=== PATIENT | female | born 1970 | race Caucasian/White ===

== ENCOUNTER 2018-04-30 10:34 | Emergency (ER) | payer MEDICARE, OTHER ==
[~2018-04-30] VITALS: Ht 152.4 cm; Wt 70.3 kg
[~2018-04-30 10:34] MED LIST: CELEBREX200 MG PO; CITALOPRAM HBR20 MG PO; LASIX20 MG PO; LEXAPRO20 MG PO; MAXALT10 MG PO; MS CONTIN30 MG PO; NORCO 10-325 T1 EACH PO; TOPIRAGEN100 MG PO; WOMEN'S DAILY1 EAC1 PO; XANAX1 MG PO
[2018-04-30] MEDS ORDERED: SODIUM CHLORIDE 0.9% 1000ML 1,000 ML IV STA (10:46)
[2018-04-30 11:30] LABS: BASOPHILS % 0.3 % (0.0-1.0); EOSINOPHILS # (AUTO) 0.2 (0.0-0.4); EOSINOPHILS % 1.6 % (0.0-6.0); HEMATOCRIT 41.8 % (34.2-44.1); HEMOGLOBIN 13.8 g/dL (12.0-16.0); LYMPHOCYTES # (AUTO) 2.6 (1.0-3.2); MEAN CORPUSCULAR HEMOGLOBIN 30.3 pg (28-32); MEAN CORPUSCULAR VOLUME 91.7 fL (81-99); MONOCYTES # (AUTO) 0.6 (0.2-0.8); MONOCYTES % 6.4 % (4.4-11.3); NEUTROPHILS % 63.4 % (38.7-80.0); PLATELET COUNT 319 x10e3/uL (140-360); RED BLOOD COUNT 4.56 x10e6/uL (3.6-5.1); RED CELL DISTRIBUTION WIDTH 15.3 % (11.7-14.4)
[2018-04-30 11:33] LABS: BILIRUBIN,URINE NEGATIVE (NEGATIVE); CLARITY,URINE CLEAR (CLEAR); COLOR,URINE YELLOW (YELLOW); KETONES,URINE NEGATIVE (NEGATIVE); LEUKOCYTE ESTERASE ,URINE NEGATIVE (NEGATIVE); NITRITE,URINE NEGATIVE (NEGATIVE); PROTEIN,URINE DIPSTICK NEGATIVE (NEGATIVE); URINE UROBILINOGEN 0.2 mg/dL (0.2 - 1)
[2018-04-30 11:39] LABS: INR 0.83; PROTHROMBIN TIME 12.2 seconds (11.9-14.5)
[2018-04-30 11:40] LABS: PARTIAL THROMBOPLASTIN TIME 27.7 seconds (23.8-35.5)
[2018-04-30 11:49] LABS: ALANINE AMINOTRANSFERASE 12 IU/L (0-55); ALBUMIN 3.8 g/dL (3.5-5.0); ALBUMIN/GLOBULIN RATIO 1.5 (0.8-2.0); ALKALINE PHOSPHATASE 43 IU/L (40-150); ANION GAP 13.3 mmol/L (8-16); BLOOD UREA NITROGEN 15 mg/dL (7-26); BUN/CREATININE RATIO 17 (6-25); CALCIUM 9.6 mg/dL (8.4-10.2); CARBON DIOXIDE 28 mmol/L (22-29); CHLORIDE 103 mmol/L (98-107); CREATININE, SERUM 0.86 mg/dL (0.57-1.11); EST GLOMERULAR FILTRATION RATE > 60 ML/MIN (60-); GLUCOSE 126 mg/dL (74-118); POTASSIUM 4.3 mmol/L (3.5-5.1); SODIUM 140 mmol/L (136-145)
[2018-04-30 11:56] LABS: BENZODIAZEPINES SCREEN,URINE POSITIVE (NEGATIVE)
[2018-04-30 11:57] LABS: AMPHETAMINES SCREEN,URINE NEGATIVE (NEGATIVE); PHENCYCLIDINE SCREEN,URINE NEGATIVE (NEGATIVE)
[2018-04-30 12:01] LABS: EPITHELIAL CELLS,URINE FEW /LPF; WBC,URINE (MAN) 0-5 /HPF (0-5)
[2018-04-30 12:09] LABS: CREATINE KINASE 131 IU/L (29-168); LIPASE 20 U/L (8-78)
[2018-04-30] MEDS ORDERED: DIAZEPAM 2 MG TAB PO ONE (12:45)
[2018-04-30] MEDS ORDERED: DIAZEPAM 5 MG TAB PO SCH (12:45)
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
== END 2018-04-30 14:52 | disposition home or self-care (01) ==
LOC: ER 10:34
DX: J70.5 Respiratory conditions due to smoke inhalation (principal); T59.811A Toxic effect of smoke, accidental (unintentional), initial encounter; Y92.038 Other place in apartment as the place of occurrence of the external cause
CPT/HCPCS: 36415; 71046; 80053; 80307; 81001; 82375; 82550; 82553; 83690; 84484; 85025; 85610; 85730; 87086; 93005; 99284; J7030

== ENCOUNTER 2019-01-28 11:37 | Observation (INO) | payer MEDICARE ==
[~2019-01-28] VITALS: Ht 167.6 cm; Wt 79.4 kg
--- OUTSIDE RECORDS SUMMARY | 2019-01-28 11:40 | XMS REPORT | Summary of Care ---
Author Author [facility] [place] Organization [facility] [place] Address Unknown Phone Unavailable Encounter HQ Melissa_renée(FIN) [id number] Date(s): 04/17/18 - 04/17/18 [facility] [place] [address] [phone] Encounter Diagnosis Pain in left hip (Final) - 04/23/18 Discharge Disposition: Home or Self Care Attending Physician: Ryan Sánchez MD Referring Physician: Ryan Sánchez MD Vital Signs No data available for this section Problem List Condition Effective Dates Status Health Status Informant Anxiety(Confirmed) Resolved Bipolar(Confirmed) Resolved Migraines(Confirmed) Resolved Paranoid type Resolved schizophrenia(Confir med) Schizophrenia(Confir Resolved med) Allergies, Adverse Reactions, Alerts No Known Medication Allergies Medications No data available for this section Results No data available for this section Immunizations No data available for this section Procedures Procedure Date Related Diagnosis Body Site Status section Completed Social History Social History Type Response Smoking Status Current every day smoker; Exposure to Tobacco Smoke None; Cigarette Smoking Last 365 Days Yes; Reg Smoking Cessation Counseling Yes entered on: 07/16/16 Assessment and Plan No data available for this section
--- OUTSIDE RECORDS SUMMARY | 2019-01-28 11:40 | XMS REPORT | Summary of Care ---
Author Author [facility] Organization [facility] Address Unknown Phone Unavailable Encounter PRITI Mendoza(TIMMY) [id number] Date(s): 03/12/15 - 03/13/15 [facility] [address] [place] [address]- Discharge Disposition: DC[facility] to [facility] Attending Physician: Ana Maria Muñoz MD Vital Signs 1 2 3 Most recent to oldest [Reference Range]: 154.94 cm (03/13/15 12:02 AM) Height 1 2 3 Most recent to oldest [Reference Range]: 98.4 DegF (03/13/15 10:34 PM) 98.6 DegF (03/13/15 8:17 PM) 99.2 DegF *HI* (03/13/15 5:08 PM) Temperature Oral [96.4-99.1 DegF] 1 2 3 Most recent to oldest [Reference Range]: 126/84 mmHg (03/13/15 10:34 PM) 122/78 mmHg (03/13/15 8:17 PM) 133/73 mmHg (03/13/15 5:08 PM) Blood Pressure [90-140/60-90 mmHg] 1 2 3 Most recent to oldest [Reference Range]: 18 BRMIN (03/13/15 10:34 PM) 16 BRMIN (03/13/15 8:17 PM) 18 BRMIN (03/13/15 5:08 PM) Respiratory Rate [14-20 BRMIN] 1 2 3 Most recent to oldest [Reference Range]: 78 bpm (03/13/15 10:34 PM) 72 bpm (03/13/15 8:17 PM) 73 bpm (03/13/15 5:08 PM) Peripheral Pulse Rate [60-100 bpm] 1 2 3 Most recent to oldest [Reference Range]: 68.182 kg (03/13/15 12:02 AM) Weight 1 2 3 Most recent to oldest [Reference Range]: 28.4 m2 (03/13/15 12:02 AM) Body Mass Index Problem List Condition Effective Dates Status Health Status Informant Anxiety(Confirmed) Resolved Bipolar(Confirmed) Resolved Migraines(Confirmed) Resolved Paranoid type Resolved schizophrenia(Confir med) Schizophrenia(Confir Resolved med) Allergies, Adverse Reactions, Alerts Substance Reaction Severity Status NKDA Active Medications morphine Sulfate 2 mg, Route: IVP, Drug form: INJ, ONCE, Dosing Weight 68.182, kg, Priority: STAT , Start date: 03/13/15 10:48:00, Stop date: 03/13/15 10:48:00 Start Date: 03/13/15 Stop Date: 03/13/15 Status: Completed [place] 5/325 oral tablet 1 tab, Route: PO, Drug Form: TAB, Dosing Weight 68.182, kg, ONCE, STAT, Start da te: 03/13/15 13:59:00, Stop date: 03/13/15 13:59:00 Notes: (Same as: [place] 325/5) Do not exceed 4gm/day of acetaminophen. Start Date: 03/13/15 Stop Date: 03/13/15 Status: Completed Results ELECTROLYTES Most recent to 1 oldest [Reference Range]: Sodium Lvl [135-145 140 mEq/L mEq/L] (03/13/15 1:21 AM) Potassium Lvl 3.4 mEq/L [3.5-5.1 mEq/L] *LOW* (03/13/15 1:21 AM) Chloride Lvl [95-109 108 mEq/L mEq/L] (03/13/15 1:21 AM) CO2 [24-32 mEq/L] 28 mEq/L (03/13/15 1:21 AM) AGAP [10.0-20.0 7.4 mEq/L mEq/L] *LOW* (03/13/15 1:21 AM) CHEM PANEL Most recent to 1 oldest [Reference Range]: Creatinine Lvl 1.1 mg/dL [0.5-1.4 mg/dL] (03/13/15 1:21 AM) eGFR 61 mL/min/1.73m2 1 *NA* (03/13/15 1:21 AM) BUN [7-22 mg/dL] 14 mg/dL (03/13/15 1:21 AM) B/C Ratio [6-25] 13 (03/13/15 1:21 AM) Glucose Lvl [70-99 99 mg/dL mg/dL] (03/13/15 1:21 AM) Total Protein 6.8 g/dL [6.4-8.4 g/dL] (03/13/15 1:21 AM) Albumin Lvl [3.5-5.0 3.8 g/dL g/dL] (03/13/15 1:21 AM) Globulin [2.0-4.0 3.0 g/dL g/dL] (03/13/15 1:21 AM) A/G Ratio [0.7-1.6] 1.3 (03/13/15 1:21 AM) Calcium Lvl 8.3 mg/dL [8.5-10.5 mg/dL] *LOW* (03/13/15 1:21 AM) ALT [0-65 unit/L] 23 unit/L (03/13/15 1:21 AM) AST [0-37 unit/L] 19 unit/L (03/13/15 1:21 AM) Alk Phos [39-136 53 unit/L unit/L] (03/13/15 1:21 AM) Bili Total [0.2-1.3 0.3 mg/dL mg/dL] (03/13/15 1:21 AM) 1Result Comment: The eGFR is calculated using the CKD-EPI formula. In most young, healthy individuals the eGFR will be >90 mL/min/1.73m2. The eGFR declines with age. An eGFR of 60-89 may be normal in some populations, particularly the elderly, for whom the CKD-EPI formula has not been extensively validated. Use of the eGFR is not recommended in the following populations: Individuals with unstable creatinine concentrations, including patients and those with serious co-morbid conditions. Patients with extremes in muscle mass or diet. The data above are obtained from the National Kidney Disease Education Program ( NKDEP) which additionally recommends that when the eGFR is used in patients with extremes of body mass index for purposes of drug dosing, the eGFR should be mul tiplied by the estimated BMI. DRUG SCREEN Most recent to 1 oldest [Reference Range]: U Amph Scr Negative [Negative] *NA* (03/13/15 3:59 AM) U Lisa Scr Negative [Negative] *NA* (03/13/15 3:59 AM) U Benzodia Scr Positive [Negative] *ABN* (03/13/15 3:59 AM) U Cocaine Scr Negative [Negative] *NA* (03/13/15 3:59 AM) U Opiate Scr Positive [Negative] *ABN* (03/13/15 3:59 AM) U Phencyc Scr Negative [Negative] *NA* (03/13/15 3:59 AM) U Cannab Scr Negative [Negative] *NA* (03/13/15 3:59 AM) UDS Note See Note (03/13/15 3:59 AM) TOXICOLOGY Most recent to 1 oldest [Reference Range]: Acetaminoph Lvl 18 ug/ml [10-20 ug/ml] (03/13/15 1:21 AM) Salicylate Lvl 4.9 mg/dL [0.0-30.0 mg/dL] (03/13/15 1:21 AM) Etoh (%) <.003 % *NA* (03/13/15 1:21 AM) Ethanol Lvl <3 mg/dL *NA* (03/13/15 1:21 AM) HEMATOLOGY Most recent to 1 oldest [Reference Range]: WBC [3.7-10.4 K/CMM] 8.2 K/CMM (03/13/15 1:21 AM) RBC [4.20-5.40 3.94 M/CMM M/CMM] *LOW* (03/13/15 1:21 AM) Hgb [12.0-16.0 g/dL] 12.5 g/dL (03/13/15 1:21 AM) Hct [36.0-48.0 %] 37.5 % (03/13/15 1:21 AM) MCV [80.0-98.0 fL] 95.3 fL (03/13/15 1:21 AM) MCH [27.0-31.0 pg] 31.7 pg *HI* (03/13/15 1:21 AM) MCHC [32.0-36.0 33.2 g/dL g/dL] (03/13/15 1:21 AM) RDW [11.5-14.5 %] 12.9 % (03/13/15 1:21 AM) Platelet [133-450 300 K/CMM K/CMM] (03/13/15 1:21 AM) MPV [7.4-10.4 fL] 7.2 fL *LOW* (03/13/15 1:21 AM) Segs [45.0-75.0 %] 55.4 % (03/13/15 1:21 AM) Lymphocytes 35.7 % [20.0-40.0 %] (03/13/15 1:21 AM) Monocytes [2.0-12.0 5.8 % %] (03/13/15 1:21 AM) Eosinophils [0.0-4.0 2.5 % %] (03/13/15 1:21 AM) Basophils [0.0-1.0 0.6 % %] (03/13/15 1:21 AM) Segs-Bands # 4.5 K/CMM [1.5-8.1 K/CMM] (03/13/15 1:21 AM) Lymphocytes # 2.9 K/CMM [1.0-5.5 K/CMM] (03/13/15 1:21 AM) Monocytes # [0.0-0.8 0.5 K/CMM K/CMM] (03/13/15 1:21 AM) Eosinophils # 0.2 K/CMM [0.0-0.5 K/CMM] (03/13/15 1:21 AM) Immunizations No data available for this section Procedures Procedure Date Related Diagnosis Body Site section Social History Social History Type Response Smoking Status Current every day smoker; Exposure to Tobacco Smoke None; Cigarette Smoking Last 365 Days Yes; Reg Smoking Cessation Counseling Yes Assessment and Plan No data available for this section
--- OUTSIDE RECORDS SUMMARY | 2019-01-28 11:40 | XMS REPORT | Summary of Care ---
Author Author [facility] Organization [facility] Address Unknown Phone Unavailable Encounter PRITI Mendoza(TIMMY) [id number] Date(s): 07/16/16 - 07/16/16 [facility] [address] [place] [address]- [phone] Discharge Diagnosis: Dysuria Discharge Diagnosis: Chronic pain Discharge Disposition: Home or Self Care Attending Physician: Saroj Connolly MD Vital Signs Most recent to 1 2 oldest [Reference Range]: Height 152.4 cm (07/16/16 2:36 PM) Temperature Oral 98.3 DegF 99.0 DegF [96.4-99.1 DegF] (07/16/16 5:04 PM) (07/16/16 2:36 PM) Blood Pressure 135/73 mmHg [90-140/60-90 mmHg] (07/16/16 2:36 PM) Respiratory Rate 18 BRMIN 16 BRMIN [14-20 BRMIN] (07/16/16 5:04 PM) (07/16/16 2:36 PM) Peripheral Pulse 88 bpm 102 bpm Rate [60-100 bpm] (07/16/16 5:04 PM) *HI* (07/16/16 2:36 PM) Weight 68.182 kg (07/16/16 2:36 PM) Body Mass Index 29.36 m2 (07/16/16 2:36 PM) Problem List Condition Effective Dates Status Health Status Informant Anxiety(Confirmed) Resolved Bipolar(Confirmed) Resolved Migraines(Confirmed) Resolved Paranoid type Resolved schizophrenia(Confir med) Schizophrenia(Confir Resolved med) Allergies, Adverse Reactions, Alerts Substance Reaction Severity Status NKDA Active Medications fentaNYL patch 50 mcg/hr 1 patch, Route: TOP, Drug Form: ERFILM, Dosing Weight 68.182, kg, Q72H, Start da te: 07/16/16 16:00:00 [employer], Duration: 30 day, Stop date: 08/12/16 16:00:00 [employer] Notes: (Same as: Duragesic)Check for product integrity. Apply to intact skin"Re move old patch before application of new patch" Start Date: 07/16/16 Stop Date: 07/16/16 Status: Discontinued Tylenol with Codeine #3 oral tablet 1 - 2 tab, PO, Q4H, PRN Pain, X 2 day, # 12 tab, 0 Refill(s) Start Date: 07/16/16 Stop Date: 07/18/16 Status: Completed Results URINE AND STOOL Most recent to 1 oldest [Reference Range]: UA Turbidity [Clear] Clear (07/16/16 4:02 PM) UA Color [Yellow] Yellow *NA* (07/16/16 4:02 PM) UA pH [5.0-8.0] 6.5 (07/16/16 4:02 PM) UA Spec Grav 1.010 [<=1.030] (07/16/16 4:02 PM) UA Glucose Negative [Negative] (07/16/16 4:02 PM) UA Blood [Negative] Moderate *ABN* (07/16/16 4:02 PM) UA Ketones Negative [Negative] *NA* (07/16/16 4:02 PM) UA Protein Negative [Negative] (07/16/16 4:02 PM) UA Urobilinogen 0.2 EU/dL [0.1-1.0 EU/dL] (07/16/16 4:02 PM) UA Bili [Negative] Negative *NA* (07/16/16 4:02 PM) UA Leuk Est Negative [Negative] (07/16/16 4:02 PM) UA Nitrite Negative [Negative] (07/16/16 4:02 PM) UA WBC [0-5 /HPF] <1 /HPF (07/16/16 4:02 PM) UA RBC [0-2 /HPF] 3 /HPF *HI* (07/16/16 4:02 PM) UA Sq Epi [Few /LPF] Occasional /LPF *NA* (07/16/16 4:02 PM) Immunizations No data available for this section Procedures Procedure Date Related Diagnosis Body Site section Social History Social History Type Response Smoking Status Current every day smoker; Exposure to Tobacco Smoke None; Cigarette Smoking Last 365 Days Yes; Reg Smoking Cessation Counseling Yes Assessment and Plan No data available for this section
--- OUTSIDE RECORDS SUMMARY | 2019-01-28 11:40 | XMS REPORT | Continuity of Care Document ---
Author Author [facility] [employer] Address Unknown Phone Unavailable Care Team Providers Care Cable Systems Installer Name Role Phone [employer] Information [facility] Unavailable Unavailable Problems Problem Status Onset Date Classification Date Reported Comments Source Pain in left hip 04/24/2018 11/04/2018 [facility] [place] M25.552 - PAIN IN LEFT HIP Active 04/17/2018 [facility] [place] Discharge Diagnosis: Dysuria 07/16/2016 07/19/2016 [facility] Discharge Diagnosis: Chronic pain 07/16/2016 07/19/2016 [facility] FALL Active 07/16/2016 [facility] SUICIDAL IDEATION Active 03/12/2015 [facility] SUWER BACK PAIN, FALL Active 03/12/2015 [facility] V70.0 - ROUTINE MEDICAL Active 06/03/2011 [facility] [place] Anxiety Resolved Problem 11/04/2018 [facility]SESD [place] Bipolar Resolved Problem 11/04/2018 [facility] [place] Migraines Resolved Problem 11/04/2018 [facility] [place] Paranoid type schizophrenia Resolved Problem 11/04/2018 [facility] [place] Schizophrenia Resolved Problem 11/04/2018 [facility] [place] Medications Medication Details Route Status Patient Instructions Ordering Provider Order Date Source Acetaminophen 300 MG / Codeine Phosphate 30 MG Oral Tablet [Tylenol with Codeine #3] 1 - 2 tab, PO, Q4H, PRN Pain, X 2 day, # 12 tab, 0 Refill(s) No Longer Active 07/16/2016 [facility] 72 HR Fentanyl 0.05 MG/HR Transdermal Patch 1 patch, Route: TOP, Drug Form: ERFILM, Dosing Weight 68.182, kg, Q72H, Start date: 07/16/16 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 Apply to intact skin "Remove old patch before application of new patch" Inactive 07/16/2016 [facility] Acetaminophen 325 MG / Hydrocodone Bitartrate 5 MG Oral Tablet [Atwood 5/325] 1 tab, Route: PO, Drug Form: TAB, Dosing Weight 68.182, kg, ONCE, STAT, Start date: 03/13/15 13:59:00, Stop date: 03/13/15 13:59:00Notes: (Same as: Atwood 325/5) Do not exceed 4gm/day of acetaminophen. Inactive 03/13/2015 [facility] Morphine 2 mg, Route: IVP, Drug form: INJ, ONCE, Dosing Weight 68.182, kg, Priority: STAT, Start date: 03/13/15 10:48:00, Stop date: 03/13/15 10:48:00 Inactive 03/13/2015 [facility] Allergies, Adverse Reactions, Alerts Substance Category Reaction Severity Reaction type Status Date Reported Comments Source No Known Medication Allergies Assertion Drug allergy [facility] [place] Immunizations No Data Provided for This Section Results Order Name Results Value Reference Range Date Interpretation Comments Source URINE AND STOOL UA RBC 3 0 - 2 07/16/2016 [facility] URINE AND STOOL UA Sq Epi Occasional /LPF Few /LPF 07/16/2016 [facility] URINE AND STOOL UA WBC <1 0 - 5 07/16/2016 [facility] URINE AND STOOL UA Color Yellow *NA* (07/16/16 4:02 PM) Yellow 07/16/2016 [facility] URINE AND STOOL UA Turbidity Clear (07/16/16 4:02 PM) Clear 07/16/2016 [facility] URINE AND STOOL UA Spec Grav 1.010 <=1.030 07/16/2016 [facility] URINE AND STOOL UA pH 6.5 5.0 - 8.0 07/16/2016 [facility] URINE AND STOOL UA Blood Moderate *ABN* (07/16/16 4:02 PM) Negative 07/16/2016 [facility] URINE AND STOOL UA Urobilinogen 0.2 0.1 - 1.0 07/16/2016 [facility] URINE AND STOOL UA Nitrite Negative (07/16/16 4:02 PM) Negative 07/16/2016 [facility] URINE AND STOOL UA Leuk Est Negative (07/16/16 4:02 PM) Negative 07/16/2016 [facility] URINE AND STOOL UA Protein Negative (07/16/16 4:02 PM) Negative 07/16/2016 [facility] URINE AND STOOL UA Glucose Negative (07/16/16 4:02 PM) Negative 07/16/2016 [facility] URINE AND STOOL UA Ketones Negative *NA* (07/16/16 4:02 PM) Negative 07/16/2016 [facility] URINE AND STOOL UA Bili Negative *NA* (07/16/16 4:02 PM) Negative 07/16/2016 [facility] DRUG SCREEN U Cocaine Scr Negative *NA* (03/13/15 3:59 AM) Negative 03/13/2015 [facility] DRUG SCREEN U Opiate Scr Positive *ABN* (03/13/15 3:59 AM) Negative 03/13/2015 [facility] DRUG SCREEN U Phencyc Scr Negative *NA* (03/13/15 3:59 AM) Negative 03/13/2015 [facility] DRUG SCREEN U Benzodia Scr Positive *ABN* (03/13/15 3:59 AM) Negative 03/13/2015 [facility] DRUG SCREEN U Cannab Scr Negative *NA* (03/13/15 3:59 AM) Negative 03/13/2015 [facility] DRUG SCREEN U Lisa Scr Negative *NA* (03/13/15 3:59 AM) Negative 03/13/2015 [facility] DRUG SCREEN U Amph Scr Negative *NA* (03/13/15 3:59 AM) Negative 03/13/2015 [facility] DRUG SCREEN UDS Note See Note (03/13/15 3:59 AM) 03/13/2015 [facility] ELECTROLYTES Potassium Lvl 3.4 3.5 - 5.1 03/13/2015 [facility] ELECTROLYTES Sodium Lvl 140 135 - 145 03/13/2015 [facility] ELECTROLYTES Chloride Lvl 108 95 - 109 03/13/2015 [facility] ELECTROLYTES eGFR 61 03/13/2015 Result Comment: The eGFR is calculated using the [...] from the National Kidney Disease Education Program (NKDEP) which additionally recommends that when the eGFR is used in patients with extremes of body mass index for purposes of drug dosing, the eGFR should be multiplied by the estimated BMI. [facility] ELECTROLYTES Bili Total 0.3 0.2 - 1.3 03/13/2015 [facility] ELECTROLYTES ALT 23 0 - 65 03/13/2015 [facility] ELECTROLYTES Albumin Lvl 3.8 3.5 - 5.0 03/13/2015 [facility] ELECTROLYTES Total Protein 6.8 6.4 - 8.4 03/13/2015 [facility] ELECTROLYTES Alk Phos 53 39 - 136 03/13/2015 [facility] ELECTROLYTES AST 19 0 - 37 03/13/2015 [facility] ELECTROLYTES Calcium Lvl 8.3 8.5 - 10.5 03/13/2015 [facility] ELECTROLYTES CO2 28 24 - 32 03/13/2015 [facility] ELECTROLYTES Creatinine Lvl 1.1 0.5 - 1.4 03/13/2015 [facility] ELECTROLYTES BUN 14 7 - 22 03/13/2015 [facility] ELECTROLYTES Glucose Lvl 99 70 - 99 03/13/2015 [facility] ELECTROLYTES A/G Ratio 1.3 0.7 - 1.6 03/13/2015 [facility] ELECTROLYTES Globulin 3.0 2.0 - 4.0 03/13/2015 [facility] ELECTROLYTES B/C Ratio 13 6 - 25 03/13/2015 [facility] ELECTROLYTES AGAP 7.4 10.0 - 20.0 03/13/2015 [facility] HEMATOLOGY Segs 55.4 45.0 - 75.0 03/13/2015 [facility] HEMATOLOGY Eosinophils 2.5 0.0 - 4.0 03/13/2015 [facility] HEMATOLOGY Monocytes 5.8 2.0 - 12.0 03/13/2015 [facility] HEMATOLOGY Basophils 0.6 0.0 - 1.0 03/13/2015 [facility] HEMATOLOGY Lymphocytes 35.7 20.0 - 40.0 03/13/2015 [facility] HEMATOLOGY Eosinophils # 0.2 0.0 - 0.5 03/13/2015 [facility] HEMATOLOGY Monocytes # 0.5 0.0 - 0.8 03/13/2015 [facility] HEMATOLOGY Lymphocytes # 2.9 1.0 - 5.5 03/13/2015 [facility] HEMATOLOGY Segs-Bands # 4.5 1.5 - 8.1 03/13/2015 [facility] HEMATOLOGY Platelet 300 133 - 450 03/13/[address] [facility] MPV 7.2 7.4 - 10.4 03/13/[address] [facility] WBC 8.2 3.7 - 10.4 03/13/[address] [facility] RBC 3.94 4.20 - 5.40 03/13/[address] [facility] Hct 37.5 36.0 - 48.0 03/13/[address] [facility] Hgb 12.5 12.0 - 16.0 03/13/[address] [facility] MCV 95.3 80.0 - 98.0 03/13/[address] [facility] MCH 31.7 27.0 - 31.0 03/13/[address] [facility] RDW 12.9 11.5 - 14.5 03/13/[address] [facility] MCHC 33.2 32.0 - 36.0 03/13/2015 [facility] TOXICOLOGY Salicylate Lvl 4.9 0.0 - 30.0 03/13/2015 [facility] TOXICOLOGY Etoh (%) <0.003 03/13/2015 [facility] TOXICOLOGY Ethanol Lvl <3 03/13/2015 [facility] TOXICOLOGY Acetaminoph Lvl 18 10 - 20 03/13/2015 [facility] Pathology Reports No Data Provided for This Section Diagnostic Reports Report Value Date Source Knee 1-2 Views unilateral DX HISTORY: - M25.562 Pain in left knee TECHNIQUE: AP and lateral views of the left knee. COMPARISON: None available. FINDINGS: Normal mineralization and anatomic alignment of the bones without fracture or dislocation. The joint spaces are well-maintained without evidence of effusion. IMPRESSION: No acute osseous injury. [id number] 04/17/2018 [facility] [place] Hip 2/3 views uni w pelvis DX HISTORY: - M25.552 Pain in left hip TECHNIQUE: AP view of the pelvis and AP and frog-leg lateral views of the left hip. COMPARISON: None available. FINDINGS: Normal mineralization and anatomic alignment of the bones without fracture or dislocation. The joint spaces are well-maintained without evidence of effusion. Several pelvic phleboliths are noted. IMPRESSION: No acute osseous injury. [id number] 04/17/2018 [facility] [place] Chest 2 views DX Clinical Indication: 46 years Female with right chest and body pain, fell on Monday Comparison: Chest x-ray 06/03/2011 FINDINGS: The PA chest radiograph shows normal lung volumes. No interstitial or airspace opacities. Several left lung calcified granulomata, unchanged. No pleural effusion. No pneumothorax. The cardiac silhouette is normal. The pulmonary vasculature is normal. The trachea is midline. There are no acute osseous abnormalities noted. IMPRESSION: No chest radiographic evidence of acute cardiopulmonary disease. SL: [id number] 07/16/2016 [facility] Brain wo contrast CT CT HEAD WITHOUT CONTRAST INDICATION: Anxiety, suicidal, no other history. There is moderate ventriculomegaly. No mass, hemorrhage, ischemic change or other intracranial abnormality is identified. No calvarial abnormality is identified. The visualized sinuses and mastoid air cells are clear. IMPRESSION: Ventriculomegaly. No acute abnormality. SL: 03/13/2015 [facility] Shoulder series DX RIGHT SHOULDER, 3 VIEWS. INDICATION: Right shoulder pain post fall. No fracture is evident. Degenerative changes involve the AC joint. The glenohumeral articulation is not remarkable. SL: 03/13/2015 [facility] Consultation Notes No Data Provided for This Section Discharge Summaries No Data Provided for This Section History and Physicals No Data Provided for This Section Vital Signs Vital Sign Value Date Comments Source Respitory Rate 18 07/16/2016 [facility] Temperature Oral (F) 98.3 F 07/16/2016 [facility] Heart Rate 88 07/16/2016 [facility] Weight 68.182 07/16/2016 [facility] BMI Calculated 29.36 07/16/2016 [facility] Height 152.4 cm 07/16/2016 [facility] Temperature Oral (F) 99.0 F 07/16/2016 [facility] Systolic (mm Hg) 135 07/16/2016 [facility] Diastolic (mm Hg) 73 07/16/2016 [facility] Respitory Rate 16 07/16/2016 [facility] Heart Rate 102 07/16/2016 [facility] Systolic (mm Hg) 126 03/14/2015 [facility] Diastolic (mm Hg) 84 03/14/2015 [facility] Temperature Oral (F) 98.4 F 03/14/2015 [facility] Respitory Rate 18 03/14/2015 [facility] Heart Rate 78 03/14/2015 [facility] Respitory Rate 16 03/14/2015 [facility] Systolic (mm Hg) 122 03/14/2015 [facility] Diastolic (mm Hg) 78 03/14/2015 [facility] Temperature Oral (F) 98.6 F 03/14/2015 [facility] Heart Rate 72 03/14/2015 [facility] Systolic (mm Hg) 133 03/13/2015 [facility] Diastolic (mm Hg) 73 03/13/2015 [facility] Temperature Oral (F) 99.2 F 03/13/2015 [facility] Heart Rate 73 03/13/2015 [facility] Respitory Rate 18 03/13/2015 [facility] Weight 68.182 03/13/2015 [facility] BMI Calculated 28.4 03/13/2015 [facility] Height 154.94 cm 03/13/2015 [facility] Encounters Location Location Details Encounter Type Encounter Number Reason For Visit Attending Provider ADM Date DC Date Status Source OD [id number] V70.0 - ROUTINE MEDICAL MECHE BROWN 06/03/[address] [place] [facility] [id number] Ana Maria Tiannadtare 03/13/2015 03/14/2015 [facility] Emergency [id number] Saroj Connolly 07/16/2016 07/16/2016 [facility] [place] [facility] [id number] Ryan Pedroza Jr 04/17/2018 04/18/2018 [facility] [place] Procedures Procedure Code Date Perfomer Comments Source section 68881045 [facility] [place] section [id number] [facility] Assessment and Plan No Data Provided for This Section Plan of Care No Data Provided for This Section Social History Social History Date Source Social History TypeResponse Smoking Status Current every day smoker; Exposure to Tobacco Smoke None; Cigarette Smoking Last 365 Days Yes; Reg Smoking Cessation Counseling Yes entered on: 07/16/16 07/16/2016 [facility] [place] Social History TypeResponse Smoking Status Current every day smoker; Exposure to Tobacco Smoke None; Cigarette Smoking Last 365 Days Yes; Reg Smoking Cessation Counseling Yes 07/16/2016 [facility] Family History No Data Provided for This Section Advance Directives No Data Provided for This Section Functional Status No Data Provided for This Section
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
--- NOTE | 2019-01-28 12:28 | NUR ---
NOTIFIED RADIOLOGY FOR STAT CT BRAIN
--- NOTE | 2019-01-28 12:43 | NUR ---
NOTIFIED RADIOLOGY FOR STAT CT BRAIN. RADIOLOGY STATES SHE WILL BE THE NEXT PATIENT TO BE TRANSPORTED TO CT.
[2019-01-28 12:53] LABS: BASOPHILS % 0.3 % (0.0-1.0); EOSINOPHILS # (AUTO) 0.1 (0.0-0.4); EOSINOPHILS % 1.1 % (0.0-6.0); HEMATOCRIT 36.8 % (34.2-44.1); HEMOGLOBIN 12.5 g/dL (12.0-16.0); LYMPHOCYTES # (AUTO) 1.7 (1.0-3.2); LYMPHOCYTES % 23.2 % (18.0-39.1); MEAN CORPUSCULAR HEMOGLOBIN 31.7 pg (28-32); MEAN CORPUSCULAR VOLUME 93.4 fL (81-99); MONOCYTES # (AUTO) 0.4 (0.2-0.8); MONOCYTES % 5.8 % (4.4-11.3); NEUTROPHILS # (AUTO) 5.1 (2.1-6.9); NEUTROPHILS % 69.3 % (38.7-80.0); PLATELET COUNT 297 x10e3/uL (140-360); RED BLOOD COUNT 3.94 x10e6/uL (3.6-5.1); RED CELL DISTRIBUTION WIDTH 12.7 % (11.7-14.4)
[2019-01-28 12:55] LABS: BILIRUBIN,URINE NEGATIVE (NEGATIVE); CLARITY,URINE CLEAR (CLEAR); COLOR,URINE YELLOW (YELLOW); KETONES,URINE NEGATIVE (NEGATIVE); LEUKOCYTE ESTERASE ,URINE NEGATIVE (NEGATIVE); NITRITE,URINE NEGATIVE (NEGATIVE); PROTEIN,URINE DIPSTICK NEGATIVE (NEGATIVE); URINE UROBILINOGEN 0.2 mg/dL (0.2 - 1)
[2019-01-28 12:57] LABS: BACTERIA,URINE FEW /HPF; EPITHELIAL CELLS,URINE FEW /LPF; RBC,URINE 0-5 /HPF (0-5); WBC,URINE (MAN) 0-5 /HPF (0-5)
[2019-01-28 13:09] LABS: INR 0.86; PROTHROMBIN TIME 12.2 seconds (11.9-14.5)
[2019-01-28 13:19] LABS: ALANINE AMINOTRANSFERASE 15 IU/L (0-55); ALBUMIN 4.2 g/dL (3.5-5.0); ALBUMIN/GLOBULIN RATIO 1.6 (0.8-2.0); ALKALINE PHOSPHATASE 70 IU/L (40-150); ANION GAP 13.9 mmol/L (8-16); BLOOD UREA NITROGEN 10 mg/dL (7-26); BUN/CREATININE RATIO 11 (6-25); CARBON DIOXIDE 27 mmol/L (22-29); CHLORIDE 102 mmol/L (98-107); CREATINE KINASE 107 IU/L (29-168); CREATININE, SERUM 0.87 mg/dL (0.57-1.11); EST GLOMERULAR FILTRATION RATE > 60 ML/MIN (60-); GLUCOSE 118 mg/dL (74-118); POTASSIUM 3.9 mmol/L (3.5-5.1); SODIUM 139 mmol/L (136-145)
--- NOTE | 2019-01-28 13:46 | NUR ---
Verified that patient could eat with ER MD. Verbal order with read back for a cardiac diet. Called the cafeteria to inform them of Lunch tray order. Notified pt.
--- OUTSIDE RECORDS SUMMARY | 2019-01-28 13:58 | XMS REPORT ---
Author Author [facility] Address Unknown Phone Unavailable Care Team Providers Care Grants Analyst Name Role Phone SAMANTHAGUS Francisco MANDI Unavailable Unavailable Payers Payer Name Policy Type [...] V LT 2018-07-11 13:43:00 Name: SUKUMAR STEARNS [facility] : 1970 Age/S:48 /F [address] [facility] Unit#:[id number] Loc: [place] [address] Phys: Mara Anna CONTACT CENTER SPECIALIST Dis Date: PHONE #: [phone] Status: REG ER FAX #: [phone] Exam Date: 07/11/2018 Reason: PAIN SWELLING BRUISING S/P INJURY EXAMS: CPT CODE: [id number] XR FOOT 3 + [place] [address] EXAM: Left foot, 3 views and left [...] Technologist: NEEMA KURTZ, RT(R),CT Trnscrpt Data: 07/11/2018 (1343) [email or web address] Orig Print D/T: S: 07/11/2018 (0060) PAGE 1 Signed Report - XR ANKLE 3 + V LT 2018-07-11 13:43:00 Name: SUKUMAR STEARNS [facility] : 1970 Age/S:48 /F [address] [facility] Unit#:[id number] Loc: [place] [address] Phys: Mara Anna NP Dis Date: PHONE #: [phone] Status: REG ER FAX #: [phone] Exam Date: 07/11/2018 Reason: PAIN SWELLING BRUISING S/P INJURY EXAMS: CPT CODE: [id number] XR ANKLE 3 + [place] LT [id number] EXAM: Left foot, 3 views and left [...] Technologist: NEEMA KURTZ, RT(R),CT Trnscrpt Data: 07/11/2018 (3415) [email or web address] Orig Print D/T: S: 07/11/2018 (4604) PAGE 1 Signed Report CHEST 2 VIEWS 2018-04-30 13:50:00 [place] [address] Patient Name: SUKUMAR STEARNS MR #: [id number] : 1970 Age/Sex: 48/F Req #: [id number] Adm Physician: Ordered by: BERTIN ARRIAGA NP Report #: [id number] Location: ER Room/Bed: Procedure: [id number] DX/CHEST 2 VIEWS Exam Date: Exam Time: [...] 1:58 PM Dictated By: RHONDA ORTIZ MD [id number] Transcribed By: DEN on 04/30/18 9758 COPY TO: BERTIN ARRIAGA NP
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
[2019-01-28] MEDS ORDERED: ONDANSETRON HCL INJ 2MG/ML 2ML 2 MG/ML VIAL IV PRN (14:00)
[2019-01-28] MEDS ORDERED: ASPIRIN 81 MG CHEW TAB PO ONE (14:00)
--- NOTE | 2019-01-28 14:00 | NUR ---
Additional warm blankets and pillows provided for pt comfort.
--- NOTE | 2019-01-28 14:12 | Diagnostic Imaging Report ---
Images made available for interpretation on 01/28/2019 at 2:00 PM. EXAMINATION: Head and cervical spine CT without contrast. HISTORY: Status post fall unsure why, left-sided facial droop, evaluate for acute stroke COMPARISON: None. TECHNIQUE: Multidetector axial images were obtained without contrast from the foramen magnum to the vertex and through the cervical spine. The images were reconstructed using brain and bone algorithms. Thin section brain images were reformatted into coronal and sagittal planes. Dose modulation, iterative reconstruction, and/or weight based adjustment of the mA/kV was utilized to reduce the radiation dose to as low as reasonably achievable. HEAD CT FINDINGS: Skull/scalp: No lytic or blastic lesions. No fractures. Parenchyma: Normal. No mass, hemorrhage or CT evidence of acute vascular insult. Brain volume: Normal for age. Ventricles: Mild ventriculomegaly of the third and lateral ventricles, which is slightly asymmetric, the left lateral ventricle is slightly more prominent. No transependymal CSF spread. The sylvian aqueduct and fourth ventricle are patent. Arteries: No density suggestive of thrombus. Dural sinuses: No abnormal density. Extra-axial spaces: No abnormal density. Foramen magnum: No mass, Chiari malformation, or basilar invagination. Sella: No obvious mass. Paranasal/mastoid sinuses: Imaged portions unremarkable. CERVICAL SPINE CT FINDINGS: Alignment:Normal alignment and lordosis. Soft tissues: Normal. Vertebrae: Normal height and density. No acute fracture, infection or neoplasm. Degenerative changes: C5-C6: Small disc ossify complex formation, mild bilateral uncovertebral arthrosis. Mild foraminal narrowing mainly on the left. IMPRESSION: Head CT: 1. No acute intracranial abnormalities, particularly no posttraumatic hemorrhage. 2. No CT evidence of acute territorial cortical vascular insults if clinical concern remains for acute stroke, consider brain MRI for further evaluation. 3. Nonspecific mild ventriculomegaly, comparison to prior studies if available is recommended. Cervical spine CT: 1. No acute fractures or dislocations. 2. Mild chronic degenerative changes at C5-C6. Note: Acute post traumatic spinal cord, vascular or ligamentous injury cannot adequately be assessed with CT. Signed by: Dr. Diamante Mixon M.D. on 01/28/2019 2:08 PM
--- NOTE | 2019-01-28 17:15 | NUR ---
PATIENT WITH BED ASSIGNMENT AT THIS TIME; WHEN ENTERED PATIENTS ROOM, PATIENT WAS FOUND YELLING AND CURSING AT SOMEONE ON HER [employer] PHONE. PATIENT THEN STATED THAT SHE WANTED TO LEAVE, AND THAT SHE WANTED TO GO OUT AND SMOKE A CIGARETTE. EXPLAINED TO PATIENT THAT THIS WAS A NON SMOKING CAMPUS, PATIENT STAQTES "I KNOW, BUT I HAVE TO GO SMOKE OR I AM GOING TO LEAVE" PER MANAGEMENT, PATIENT WAS ALLOWED TO GO OUTSIDE, IV REMOVED PRIOR TO PATIENT EXITING. PATIENT STATED THAT SHE WOULD BE BACK AFTER SHE SMOKED AND CALMED DOWN
[2019-01-28] MEDS ORDERED: TIZANIDINE HCL4 MG PO (17:50)
[2019-01-28] MEDS ORDERED: GABAPENTIN300 MG PO (17:51)
[2019-01-28] MEDS ORDERED: SEROQUEL25 MG PO (17:51)
[2019-01-28] MEDS ORDERED: ZOLPIDEM TARTRA10 MG PO (17:52)
[2019-01-28] MEDS ORDERED: DIAZEPAM5 MG PO (17:52)
[2019-01-28] MEDS ORDERED: MIRTAZAPINE15 MG PO (17:53)
[2019-01-28 19:25] VITALS: BP 96/55
--- NOTE | 2019-01-28 19:45 | NUR ---
PATIENT RECEIVED FROM ER AOX4, NO SIGNS OF DISTRESS NOTED. PATIENT DID NOT HAVE IV AND REFUSED PLACEMENT, SHE CURRENTLY DOES NOT HAVE IV MEDICATIONS ON HER MEDICATION CHART. BED IS IN LOWEST POSITION AND LOCKED, CALL LIGHT WITHIN EASY REACH, WILL CONTINUE TO MONITOR.
[2019-01-28] MEDS ORDERED: NON-FORMULARY MEDICATION (Zolpidem Tartrate 10 MG) PO SCH (21:00)
[2019-01-28] MEDS ORDERED: ESCITALOPRAM OXALATE 10 MG TAB PO SCH (21:00)
[2019-01-28] MEDS ORDERED: MIRTAZAPINE 15 MG TAB PO SCH (21:00)
[2019-01-28] MEDS ORDERED: ZOLPIDEM TARTRATE 10 MG TAB PO SCH (21:00)
[2019-01-28] MEDS ORDERED: ESCITALOPRAM OXALATE 40 MG PO SCH (21:00)
[2019-01-28 21:02] LABS: CREATINE KINASE 121 IU/L (29-168)
[2019-01-28] MEDS: DIAZEPAM 5 MG TAB PO SCH (21:20)
[2019-01-28 21:43] VITALS: BP 96/55
[2019-01-28 21:45] VITALS: BP 96/55
[2019-01-29] VITALS: BP 116/55
[2019-01-29 04:00] VITALS: BP 119/73
[2019-01-29 04:46] LABS: BASOPHILS % 0.3 % (0.0-1.0); EOSINOPHILS # (AUTO) 0.2 (0.0-0.4); EOSINOPHILS % 2.7 % (0.0-6.0); HEMOGLOBIN 12.8 g/dL (12.0-16.0); LYMPHOCYTES # (AUTO) 2.7 (1.0-3.2); LYMPHOCYTES % 35.3 % (18.0-39.1); MEAN CORPUSCULAR HEMOGLOBIN 31.7 pg (28-32); MEAN CORPUSCULAR HGB CONC 33.7 g/dL (31-35); MEAN CORPUSCULAR VOLUME 94.1 fL (81-99); MONOCYTES # (AUTO) 0.7 (0.2-0.8); MONOCYTES % 8.6 % (4.4-11.3); NEUTROPHILS % 52.7 % (38.7-80.0); PLATELET COUNT 306 x10e3/uL (140-360); RED BLOOD COUNT 4.04 x10e6/uL (3.6-5.1); RED CELL DISTRIBUTION WIDTH 12.7 % (11.7-14.4)
[2019-01-29 04:58] LABS: CREATINE KINASE 114 IU/L (29-168)
[2019-01-29 05:03] LABS: ALANINE AMINOTRANSFERASE 14 IU/L (0-55); ALBUMIN 3.6 g/dL (3.5-5.0); ALBUMIN/GLOBULIN RATIO 1.3 (0.8-2.0); ALKALINE PHOSPHATASE 64 IU/L (40-150); ANION GAP 12.7 mmol/L (8-16); BUN/CREATININE RATIO 19 (6-25); CALCIUM 10.1 mg/dL (8.4-10.2); CARBON DIOXIDE 32 mmol/L (22-29); CHLORIDE 101 mmol/L (98-107); CHOL/HDL RATIO 5.9 (3.0-3.6); CHOLESTEROL 212 MD/DL (0-199); CREATININE, SERUM 0.86 mg/dL (0.57-1.11); EST GLOMERULAR FILTRATION RATE > 60 ML/MIN (60-); GLUCOSE 100 mg/dL (74-118); HDL CHOLESTEROL 36 MG/DL (40-60); POTASSIUM 3.7 mmol/L (3.5-5.1); SODIUM 142 mmol/L (136-145); TRIGLYCERIDES 404 MG/DL (0-149)
[2019-01-29 05:08] LABS: BLOOD UREA NITROGEN 16 mg/dL (7-26)
[2019-01-29 05:24] LABS: FREE T4 (FREE THYROXINE) 0.81 ng/dL (0.8-1.8); THYROID STIMULATING HORMONE 0.831 uIU/mL (0.350-4.940)
[2019-01-29] MEDS ORDERED: FAMOTIDINE 20 MG TAB PO SCH (07:30)
[2019-01-29 08:00] VITALS: BP 142/65
[2019-01-29] MEDS: DIAZEPAM 5 MG TAB PO SCH (08:15)
[2019-01-29] MEDS ORDERED: ASPIRIN 81 MG ENTERIC COATED PO SCH (09:00)
--- NOTE | 2019-01-29 09:00 | NUR ---
Pt received in bed at this time. Pt is aox4 and able to verbalize needs. Pt is asked for pain medication, explained to pt that some medications are being held to make sure that medications are not the cause of her symptoms. Pt states that she does not get her pain medication for her sciatic nerve she is leaving AMA. When FINANCIAL OFFICER for Dr. Damian was here to round she was made aware of what pt said. Received new orders to start her neurontin. Waiting for Neurology to come see her and if she gets cleared by neurology she can possibly discharge today.
[2019-01-29] MEDS ORDERED: LIPITOR20 MG PO (10:02)
[2019-01-29] MEDS ORDERED: ASPIRIN EC81 MG PO (10:02)
[2019-01-29] MEDS: GABAPENTIN 300 MG CAP PO SCH ×2 (10:23→10:30)
--- NOTE | 2019-01-29 10:35 | NUR ---
Pt is asking for pain medication at this time. Brought her gabapentin which had just been restarted and pt refused. She states that it is [place] that she needs. DIGITAL STRATEGIST for attending is here and made aware and no new orders for norco received. Pt states that she is leaving AMA if she does not receive [place]. notified that pt is leaving AMA.
--- NOTE | 2019-01-29 10:35 | NUR ---
Pt signed AMA form.
--- NOTE | 2019-01-29 10:56 | Diagnostic Imaging Report ---
MRI SPINE CERVICAL WO HISTORY: Left arm weakness COMPARISON: CT of the cervical spine 01/28/2019 TECHNIQUE: Sagittal T1, sagittal T2, sagittal inversion recovery, axial T2 and axial T1 weighted MR images of the cervical spine were obtained without intravenous contrast. Motion and noise artifacts obscure some details. DISCUSSION: Alignment: Straightening of the cervical lordosis. No scoliosis. Vertebrae: No definite evidence for fractures, or neoplasm. Cervicomedullary junction: No abnormalities. Spinal cord: The left ventral cord at C5-C6 is indented by a 4 mm left paracentral disc protrusion. The cord is otherwise normal signal and morphology from the foramen magnum through T4-T5. Soft tissues: No signal abnormalities. There is moderate disc degeneration at C5-C6 with nonspecific inflammatory endplate changes. Mild atlantoaxial arthrosis is associated with a small joint effusion. C2-C3: Patent canal and foramina. C3-C4: Patent canal and foramina. C4-C5: Patent canal and foramina. C5-C6: There is mild retrolisthesis of C5 on C6. Moderate canal stenosis due to disc bulge and superimposed left paracentral disc protrusion that indents the left ventral cord. Moderate right and moderate to severe left foraminal stenoses due to uncovertebral and facet arthrosis. C6-C7: Patent canal and foramina. C7-T1: Patent canal and foramina. IMPRESSION: 1. Moderate C5-C6 disc degeneration with nonspecific inflammatory endplate changes. 2. Moderate C5-C6 canal stenosis due to disc bulge and left paracentral disc protrusion that indents the left ventral cord. 3. Moderate right and moderate to severe left C5-C6 degenerative foraminal stenoses. Signed by: Dr. Juan Casillas M.D. on 01/29/2019 10:53 AM
--- NOTE | 2019-01-29 11:15 | Diagnostic Imaging Report ---
MRI BRAIN WO HISTORY: Left arm weakness COMPARISON: Head CT 01/28/2019, concurrent cervical spine MRI TECHNIQUE: Sagittal T2, axial T2, axial T1, axial T2/FLAIR, axial gradient echo (or susceptibility weighted), coronal T2/FLAIR, and axial diffusion weighted MR images of the brain were obtained without contrast. DISCUSSION: Scalp/bone marrow: Unremarkable. Brain sulci: Appropriate for patient's age. Ventricles: Mild to moderate supratentorial ventriculomegaly is unchanged, left slightly greater than right.. Extra-axial spaces: No masses or fluid collections. Parenchyma: Scattered T2/FLAIR hyperintense foci throughout the supratentorial white matter are likely chronic microvascular ischemic changes. Otherwise, no mass, hemorrhage, or acute vascular insults. Vessels: Normal flow voids in major arteries and veins. Sellar/Suprasellar region: No abnormalities. Craniocervical junction: No abnormalities. Incidental findings: Trace T2 hyperintense right mastoid effusion is present. IMPRESSION: 1. Unchanged mild to moderate supratentorial ventriculomegaly. 2. Otherwise, no acute intracranial abnormalities. 3. Mild supratentorial chronic microvascular ischemic change. Signed by: Dr. Juan Casillas M.D. on 01/29/2019 11:12 AM
[2019-01-29] MEDS ORDERED: GABAPENTIN 300 MG CAP PO SCH (15:00)
[2019-01-29] MEDS ORDERED: ATORVASTATIN 20 MG TAB PO SCH (21:00)
--- NOTE | 2019-01-30 05:49 | Discharge Summary ---
The patient left AMA on 01/29/2019. ADMISSION DIAGNOSES: Weakness, syncope, depression, anxiety, posttraumatic stress disorder, schizophrenia, chronic pain. DISCHARGE DIAGNOSES: Weakness, syncope, depression, anxiety, posttraumatic stress disorder, schizophrenia, chronic pain. HISTORY: The patient has a history of anemia, chronic back pain, sciatica, bipolar, PTSD, schizophrenia, anxiety, cervical cancer. SURGICAL HISTORY: Tonsillectomy, . FAMILY HISTORY: The patient's mother had diabetes and cancer. SOCIAL HISTORY: The patient admits to occasional alcohol use and uses the vape about 5 times a day. She also admits that she smokes occasional weed and her last joint was on Monday. HOSPITAL COURSE: A 48-year-old female collapsed on Monday morning and was unable to get herself up due to left arm weakness. She denies tingling, numbness, dizziness, vision changes, and dysphagia. She admits to history of dropping things with her left hand over the last few years. She says her left leg never got weak. On admission, CT of the brain was negative. CT of the C-spine showed no fractures or dislocation. Chronic degenerative changes at C5-C6. No acute posttraumatic spinal cord, vascular, or ligamentous injury could be assessed with the CT. Echo was done that showed an EF of 40% to 45% with no severe valvular abnormality. Echo showed normal sinus at 91. The patient's triglycerides and cholesterol were elevated. Soon after being admitted, the patient was angry as she could not get [place] on top of all her other sedating psych medications, so she left AMA without getting any prescriptions. The patient understands the risks of going AMA and accept responsibility. Dictated by Paola Broussard NP Lenard Damian MD TREVIN/MODL /[id number]
== END 2019-01-29 10:37 | disposition left against medical advice (07) ==
LOC: ER 11:37 → ERHOLD 13:46 → MED/SURG3 19:23
PROVIDERS: ADMIT Internal Medicine; ATTEND Internal Medicine
DX: R55 Syncope and collapse (principal); F43.10 Post-traumatic stress disorder, unspecified; F20.9 Schizophrenia, unspecified; D64.9 Anemia, unspecified; G89.29 Other chronic pain; M54.30 Sciatica, unspecified side; Z85.42 Personal history of malignant neoplasm of other parts of uterus; F31.9 Bipolar disorder, unspecified
CPT/HCPCS: 36415 ×2; 70450; 70551; 72125; 72141; 80053 ×2; 80061; 81001; 82550 ×2; 82553 ×2; 83036; 84439; 84443; 84484 ×2; 85025 ×2; 85610; 85730; 93005; 93306; 93880; 99284; G0378 ×2

== ENCOUNTER 2019-03-25 17:38 | Emergency (ER) | payer MEDICARE ==
[~2019-03-25] VITALS: Ht 167.6 cm; Wt 79.4 kg
[~2019-03-25 17:38] MED LIST changes: +ASPIRIN EC81 MG PO; +DIAZEPAM5 MG PO; +GABAPENTIN300 MG PO; +LIPITOR20 MG PO; +MIRTAZAPINE15 MG PO; +SEROQUEL25 MG PO; +TIZANIDINE HCL4 MG PO; +ZOLPIDEM TARTRA10 MG PO
--- NOTE | 2019-03-25 18:10 | NUR ---
SPOKE WITH SOLE AT [facility] CONTROL: . PER HER RECOMMENDATION, ANCELMO O HAVE BASELINE EKG, IV FLUIDS, CBC, CMP, AND UDS. DR MCGEE NOTIFIED AT THIS TIME
[2019-03-25 18:43] LABS: AMPHETAMINES SCREEN,URINE NEGATIVE (NEGATIVE); PHENCYCLIDINE SCREEN,URINE NEGATIVE (NEGATIVE)
[2019-03-25 18:44] LABS: BENZODIAZEPINES SCREEN,URINE POSITIVE (NEGATIVE)
[2019-03-25] MEDS ORDERED: SODIUM CHLORIDE 0.9% 1000ML 1,000 ML IV STA (19:05)
[2019-03-25 19:40] LABS: BASOPHILS % 0.2 % (0.0-1.0); EOSINOPHILS % 0.5 % (0.0-6.0); HEMATOCRIT 38.6 % (34.2-44.1); HEMOGLOBIN 13.1 g/dL (12.0-16.0); LYMPHOCYTES # (AUTO) 1.6 (1.0-3.2); LYMPHOCYTES % 19.4 % (18.0-39.1); MEAN CORPUSCULAR HEMOGLOBIN 31.9 pg (28-32); MEAN CORPUSCULAR HGB CONC 33.9 g/dL (31-35); MEAN CORPUSCULAR VOLUME 93.9 fL (81-99); MONOCYTES # (AUTO) 0.5 (0.2-0.8); MONOCYTES % 5.8 % (4.4-11.3); NEUTROPHILS # (AUTO) 6.1 (2.1-6.9); NEUTROPHILS % 73.7 % (38.7-80.0); PLATELET COUNT 351 x10e3/uL (140-360); RED BLOOD COUNT 4.11 x10e6/uL (3.6-5.1)
[2019-03-25 19:54] LABS: ALBUMIN 4.1 g/dL (3.5-5.0); ALBUMIN/GLOBULIN RATIO 1.3 (0.8-2.0); CALCIUM 11.2 mg/dL (8.4-10.2); CREATININE, SERUM 1.3 mg/dL (0.57-1.11)
--- NOTE | 2019-03-25 20:00 | NUR ---
WENT INTO ROOM TO MEDICATE PT AND PT WAS NOT IN ROOM; IV WAS REMOVED BY PT AND FOUND ON BED INTACT; CHECKED BATHROOM AND OUTSIDE - PT NOT FOUND; ER MD AND ENP NOTIFIED
[2019-03-25 20:13] LABS: ACETAMINOPHEN < 3 ug/mL (10-30); SALICYLATE < 5.0 mg/dL (0-30)
== END 2019-03-25 21:14 | disposition home or self-care (01) ==
LOC: ER 17:38
DX: T43.021A Poisoning by tetracyclic antidepressants, accidental (unintentional), initial encounter (principal); F31.9 Bipolar disorder, unspecified; F41.9 Anxiety disorder, unspecified
CPT/HCPCS: 36415; 80053; 80307; 80329 ×2; 85025; 93005; 99283; J7030

== ENCOUNTER → 2023-01-06 | Outpatient (CLI) | payer MEDICARE | LOC: MAMMO 10:50 | PROVIDERS: ATTEND Internal Medicine | DX: Z12.31 Encounter for screening mammogram for malignant neoplasm of breast (principal); N63.41 Unspecified lump in right breast, subareolar | CPT/HCPCS: 77067 ==

== ENCOUNTER → 2024-02-28 | Outpatient (REF) | payer MEDICARE | LOC: MAMMO 08:04 | PROVIDERS: ATTEND Internal Medicine | DX: Z12.31 Encounter for screening mammogram for malignant neoplasm of breast (principal) | CPT/HCPCS: 77067 ==